=== PATIENT | female | born 1975 | race Asian ===

== ENCOUNTER 2018-08-23 16:21 | Observation (INO) ==
--- NOTE | 2018-08-23 17:30 | ED ---
HPI General Chief Complaint: Neuro Symptoms/Deficit Stated Complaint: Medical Time Seen by Provider: 08/23/18 16:51 Source: patient Mode of arrival: ambulatory Limitations: no limitations History of Present Illness HPI Narrative: The patient is a 43-year-old female who presents to the emergency department for visual acuity changes that occurred yesterday. The patient states she awakened yesterday and suddenly noticed that she had decreased vision from the upper aspect of both eyes. The patient felt like there was darkening of the upper quadrants of the left and right eye. She then developed a change in vision of her left eye earlier today on the left upper quadrant and was subsequently seen by the photography coordinator at the [place] [facility]. The patient states that the multiple test including dilating her eyes and stated her eyes were normal and referred her to the emergency department for evaluation of possible stroke. The patient denies any history of prior TIA or CVA, does have a history of lupus and is currently treated with medications. Symptoms are moderate, constant, and there are no current alleviating factors. The patient denies any weakness or numbness of the face, arms, or legs. She denies any ataxia. She denies any dysarthria. Onset (ago): day(s) Location: Reports other History of same: No Severity: moderate Quality: Reports constant and other Relieving factors: none Exacerbating factors: none Context: Reports sudden onset On Anticoagulants: No Associated symptoms: Reports denies other symptoms Treatments Prior to Arrival: Reports none Related Data Home Medications Medication Instructions Recorded Confirmed biotin 08/23/18 buspirone 10 mg PO BID 08/23/18 08/23/18 calcium carbonate [Calcium 600] 600 mg PO TID 08/23/18 08/23/18 cyclobenzaprine 10 mg PO DAILY 08/23/18 08/23/18 diphenhydramine HCl 08/23/18 gabapentin 300 mg PO TID 08/23/18 08/23/18 hydroxychloroquine 200 mg PO BID 08/23/18 08/23/18 meloxicam 15 mg PO DAILY 08/23/18 08/23/18 Allergies Allergy/AdvReac Type Severity Reaction Status Date / Time sulfamethoxazole Allergy Rash Verified 08/23/18 16:49 [From Bactrim] trimethoprim [From Bactrim] Allergy Rash Verified 08/23/18 16:49 Review of Systems ROS: all other systems reviewed are negative PMFSH Medical History Medical History Age related osteoporosis (Acute) Arthritis (Acute) delivery delivered (Acute) Degenerative joint disease (Acute) Fibromyalgia (Acute) Kidney disease (Acute) Lupus (Acute) Migraine (Acute) Social History Social History Substance History: No History of Abuse Second Hand Smoke Exposure: No Smoking Status: Light tobacco smoker Tobacco Type: Cigarettes How Often Do You Have a Drink Containing Alcohol: Never Recent Travel in [facility] within the Last 8 Weeks: No Recent Out of Country Travel within the Last 8 Weeks: No Immunization History Tetanus Immunization: Unsure Hx Influenza Vaccine This Season: No Exam Narrative Exam Narrative: GENERAL: Awake, alert, pleasant 43-year-old female who appears her stated age and is in no acute respiratory distress. SKIN: Focused skin assessment warm/dry. HEAD: Atraumatic. Normocephalic. EYES: Pupils equal are dilated bilaterally. EOMs are intact. Patient is able to see fingers at a distance of 2 feet without difficulty. Vision is 20/20 with glasses. Confrontational eye james reveal that the left upper quadrant in both eyes is diminished. ENT: No nasal bleeding or discharge. Mucous membranes pink and moist. NECK: Trachea midline. No JVD. CARDIOVASCULAR: Regular rate and rhythm. No murmur appreciated. RESPIRATORY: No accessory muscle use. Clear to auscultation. Breath sounds equal bilaterally. GASTROINTESTINAL: Abdomen soft, non-tender, nondistended. Hepatic and splenic margins not palpable. MUSCULOSKELETAL: No obvious deformities. No clubbing. No cyanosis. No edema. NEUROLOGICAL: Awake and alert. No obvious cranial nerve deficits. Eye findings as above. No drift of the upper or lower extremities. Finger to nose is normal. Heel to resendez is normal. No dysarthria. Sensation is symmetric on the face, arms, and legs. PSYCHIATRIC: Appropriate mood and affect; insight and judgment normal. Course Initial Documented Vital Signs Pulse Rate 80 08/23/18 16:49 Respiratory Rate 18 08/23/18 16:49 Blood Pressure 137/95 H 08/23/18 16:49 Pulse Oximetry 98 08/23/18 16:49 Last Documented Vital Signs Temperature 98.0 F 08/24/18 03:18 Pulse Rate 77 08/24/18 06:01 Respiratory Rate 19 08/24/18 03:18 Blood Pressure 122/66 08/24/18 03:18 Pulse Oximetry 96 08/24/18 03:18 NIH Stroke Scale NIH Stroke Scale Level of Consciousness: 0-Alert Orientation Questions: 0-Answers both correct Responds to Commands: 0-Both tasks correct Gaze Eye Movement: 0-Horizontal movement WNL Visual James: 1-Partial hemianopia Facial Movement: 0-Normal Motor Functions Arm LEFT: 0-No drift Motor Functions Arm RIGHT: 0-No drift Motor Functions Leg LEFT: 0-No drift Motor Functions Leg RIGHT: 0-No drift Limb Ataxia: 0-No ataxia Sensory Loss: 0-No sensory loss Best Language: 0-Normal Articulation: 0-Normal Extinction or Inattention Sensory: 0-Absent Total: 1 Medical Decision Making MDM Narrative Medical decision making narrative: IV was established, labs are drawn and sent, and the patient was placed on cardiac telemetry monitoring and continuous pulse oximetry monitoring. EKG was ordered and interpreted. Laboratory evaluation was sent to lab and I discussed the patient with the on-call lotus notes developer, Dr. Bailey. After discussion it was agreed the patient would have an MRI of the brain and MRA of the brain. The on-call neurologist, Dr. Nichols, was also notified to evaluate for any further additional MRIs acutely. I discussed the patient with Dr. Nichols who also agrees with MRI/MRA of the brain and neck. The patient will be a 23-hour observation to the on-call medical service. Medical Screen Exam Complete: Yes Emergency Medical Condition: Yes Differential Diagnosis Differential Diagnosis: Differential diagnosis includes CVA, TIA, lupus side effect, central venous thrombosis, central artery thrombosis, retinal detachment , complicated migraine, atypical seizure. Lab Data Lab results reviewed: Yes I reviewed the patient's lab results. Result diagrams: 08/23/18 17:24 08/23/18 17:24 Lab Results 08/23/18 08/23/18 08/23/18 Range/Units 16:50 17:24 17:24 WBC 7.5 (4.0-11.0) th/mm3 RBC 4.66 (4.00-5.30) mil/mm3 Hgb 12.3 (11.6-15.3) gm/dL Hct 36.7 (35.0-46.0) % MCV 78.8 L (80.0-100.0) fL MCH 26.4 L (27.0-34.0) pg MCHC 33.4 (32.0-36.0) % RDW 13.7 (11.6-17.2) % Plt Count 366 (150-450) th/mm3 MPV 8.1 (7.0-11.0) fL Neut % (Auto) 48.3 (16.0-70.0) % Lymph % (Auto) 38.7 (9.0-44.0) % [place] % (Auto) 11.1 H (0.0-8.0) % Eos % (Auto) 1.4 (0.0-4.0) % Baso % (Auto) 0.5 (0.0-2.0) % Neut # (Auto) 3.6 (1.8-7.7) th/mm3 Lymph # (Auto) 2.9 (1.0-4.8) th/mm3 [place] # (Auto) 0.8 (0.0-0.9) th/mm3 Eos # (Auto) 0.1 (0.0-0.4) th/mm3 Baso # (Auto) 0.0 (0.0-0.2) th/mm3 WBC Differential . Differential Comment Auto diff final PT 10.7 (9.8-11.6) sec INR 1.1 Ratio APTT 27.8 (24.3-30.1) sec Sodium (136-145) meq/L Potassium (3.5-5.1) meq/L Chloride (98-107) meq/L Carbon Dioxide (21.0-32.0) meq/L Anion Gap (5-15) meq/L BUN (7-18) mg/dL Creatinine (0.50-1.00) mg/dL Estimated GFR (>89) mL/min POC Glucose 78 (68-110) mg/dl Random Glucose (74-106) mg/dL Calcium (8.5-10.1) mg/dL Total Bilirubin (0.2-1.0) mg/dL AST (15-37) U/L ALT (10-53) U/L Alkaline Phosphatase (45-117) U/L Total Protein (6.4-8.2) g/dL Albumin (3.4-5.0) g/dL 08/23/18 Range/Units 17:24 WBC (4.0-11.0) th/mm3 RBC (4.00-5.30) mil/mm3 Hgb (11.6-15.3) gm/dL Hct (35.0-46.0) % MCV (80.0-100.0) fL MCH (27.0-34.0) pg MCHC (32.0-36.0) % RDW (11.6-17.2) % Plt Count (150-450) th/mm3 MPV (7.0-11.0) fL Neut % (Auto) (16.0-70.0) % Lymph % (Auto) (9.0-44.0) % [place] % (Auto) (0.0-8.0) % Eos % (Auto) (0.0-4.0) % Baso % (Auto) (0.0-2.0) % Neut # (Auto) (1.8-7.7) th/mm3 Lymph # (Auto) (1.0-4.8) th/mm3 [place] # (Auto) (0.0-0.9) th/mm3 Eos # (Auto) (0.0-0.4) th/mm3 Baso # (Auto) (0.0-0.2) th/mm3 WBC Differential Differential Comment PT (9.8-11.6) sec INR Ratio APTT (24.3-30.1) sec Sodium 142 (136-145) meq/L Potassium 3.4 L (3.5-5.1) meq/L Chloride 106 (98-107) meq/L Carbon Dioxide 29.0 (21.0-32.0) meq/L Anion Gap 7 (5-15) meq/L BUN 12 (7-18) mg/dL Creatinine 0.78 (0.50-1.00) mg/dL Estimated GFR 80 L (>89) mL/min POC Glucose (68-110) mg/dl Random Glucose 70 L (74-106) mg/dL Calcium 8.4 L (8.5-10.1) mg/dL Total Bilirubin 0.2 (0.2-1.0) mg/dL AST 27 (15-37) U/L ALT 16 (10-53) U/L Alkaline Phosphatase 101 (45-117) U/L Total Protein 7.4 (6.4-8.2) g/dL Albumin 3.3 L (3.4-5.0) g/dL Imaging Data Radiologist's impression: Head MRI 08/23/18 17:22 CONCLUSION: 1. Negative noncontrast MRI brain. Head MRA 08/23/18 17:22 CONCLUSION: 1. Negative MRA of the [place]. Neck MRA 08/23/18 17:32 CONCLUSION: 1. Negative MRA of the carotids. Percent stenosis is calculated using the diameter of the stenotic region over the diameter of the normal distal internal carotid artery Discharge Plan Discharge Disposition Patient Disposition: 30 Still Patient Discharge Condition Condition: Stable Discharge Details Diagnosis: Homonymous hemianopsia, Homonymous bilateral field defects, unspecified side Physicians Team ED Provider: Rinku Raza Primary Care Provider: UNKNOWN, Attending Provider: Annabelle Sue Other Providers: Ned Aquino Status ED Status: Left Department Discharge Information Discharge Date/Time: 08/23/18 19:58
[2018-08-23] MEDS ORDERED: Bisacodyl 10 MG Supp RECTAL PRN (18:10)
[2018-08-23] MEDS ORDERED: Acetaminophen 325 MG Tablet PO PRN (18:10)
[2018-08-23] MEDS ORDERED: Gadobutrol PF 10 MMOL/10 ML Vial (for RAD) IV.SIG ONE ×2 (18:15→19:01)
[2018-08-23 18:18] LABS: Baso % (Auto) 0.5 % (0.0-2.0); Eos # (Auto) 0.1 th/mm3 (0.0-0.4); Eos % (Auto) 1.4 % (0.0-4.0); Hematocrit 36.7 % (35.0-46.0); Hemoglobin 12.3 gm/dL (11.6-15.3); Lymph # (Auto) 2.9 th/mm3 (1.0-4.8); Lymph % (Auto) 38.7 % (9.0-44.0); Mean Corpuscular HGB Conc 33.4 % (32.0-36.0); Mean Corpuscular Hemoglobin 26.4 pg (27.0-34.0); Mean Corpuscular Volume 78.8 fL (80.0-100.0); Mean Platelet Volume 8.1 fL (7.0-11.0); Mono # (Auto) 0.8 th/mm3 (0.0-0.9); Mono % (Auto) 11.1 % (0.0-8.0); Neut # (Auto) 3.6 th/mm3 (1.8-7.7); Neut % (Auto) 48.3 % (16.0-70.0); Platelet Count 366 th/mm3 (150-450); Red Blood Count 4.66 mil/mm3 (4.00-5.30); Red Cell Distribution Width 13.7 % (11.6-17.2); White Blood Count 7.5 th/mm3 (4.0-11.0)
[2018-08-23 18:26] LABS: Activated Partial Thrombo Time 27.8 sec (24.3-30.1); Alanine Aminotransferase 16 U/L (10-53); Albumin 3.3 g/dL (3.4-5.0); Anion Gap 7 meq/L (5-15); Aspartate Aminotransferase 27 U/L (15-37); Blood Urea Nitrogen 12 mg/dL (7-18); Calcium 8.4 mg/dL (8.5-10.1); Chloride 106 meq/L (98-107); Glomerular Filtration Rate 80 mL/min (>89); Glucose,Random 70 mg/dL (74-106); INR 1.1 Ratio; Potassium 3.4 meq/L (3.5-5.1); Prothrombin Time 10.7 sec (9.8-11.6); Sodium 142 meq/L (136-145)
[2018-08-23 18:28] LABS: Alkaline Phosphatase 101 U/L (45-117); Total Protein 7.4 g/dL (6.4-8.2)
--- NOTE | 2018-08-23 18:46 | P.HP ---
History of Present Illness Service: Hospitalist Primary Care Physician: UNKNOWN Chief Complaint: Partial vision loss History of Present Illness: Ms. Dockery is a pleasant 43-year-old female with a history of mixed connective tissue disease (MCTD) who presents to the emergency department on 08/23/2018 due to acute partial vision loss and blurry vision that started on 08/22/2018. Day before this admission patient woke up in the morning and experienced blurriness in her vision as well as darkness especially on the upper quadrants of both eyes. Hoping that it would go away, she waited 1 day. This morning she woke up with worsening symptoms with her vision again blurred and dark especially upper quadrants. She denies any dysarthria, weakness, facial droopiness. She did not have any chest pain, shortness of breath, cough, abdominal pain, fever or chills. No changes in bowel or bladder habits. She was evaluated by [place] regulatory internship who after examining patient recommended emergency department evaluation for possible stroke. Patient is hemodynamically stable and labs unremarkable. Ophthalmology and neurology were contacted by emergency department. Neurology recommended MRI studies to investigate further. Past medical history: Mixed connective tissue disease, lupus nephritis Past surgical history: , tubal ligation Social history: She smokes about 3 cigarettes/week. Denies using illicit drugs or alcohol. Family history: Patient was adopted and does not know her biological family history. - Diagnosis (1) MCTD (mixed connective tissue disease) (2) Homonymous hemianopsia Review of Systems All other systems reviewed negative except as stated in HPI [facility], [facility] - History History Provided By: Leather Currier / EMT - Medical History Medical History: Medical History (Last Updated 08/23/18 @ 16:54 by Diamond Alfonso) Age related osteoporosis Arthritis delivery delivered Degenerative joint disease Fibromyalgia Kidney disease Lupus Migraine - Tobacco History Second Hand Smoke Exposure: No Tobacco Use In Past 30 Days: No Smoking Status: Current some day smoker Tobacco Type: Cigarettes - Alcohol History How Often Do You Have a Drink Containing Alcohol: Never - Substance Use History Substance History: No History of Abuse - Travel History Recent Travel in the [facility] Within the Last 8 Weeks: No Recent Travel Out of the Country Within the Last 8 Weeks: No - Immunization History Tetanus Immunization: Unsure Hx Influenza Vaccine This Season: No Medications and Allergies Active Medications: Active Medications Acetaminophen (Tylenol) 650 mg PO Q4H PRN PRN Reason: Headache, fever, pain 1-4 [place] Hydroxide/Mg Hydroxide (Milk Of Magnesia Liq) 30 ml PO Q12H PRN PRN Reason: Mild Constipation Bisacodyl (Dulcolax Supp) 10 mg RECTAL DAILY PRN PRN Reason: SEVERE CONSITIPATION Lactulose (Lactulose Liq) 30 ml PO DAILY PRN PRN Reason: SEVERE CONSITIPATION Ondansetron HCl (Zofran Inj) 4 mg IV.PUSH Q6H PRN PRN Reason: NAUSEA OR VOMITING Sennosides (Senokot) 17.2 mg PO Q12H PRN PRN Reason: Moderate Constipation Allergies Allergy/AdvReac Type Severity Reaction Status Date / Time sulfamethoxazole Allergy Rash Verified 08/23/18 16:49 [From Bactrim] trimethoprim [From Bactrim] Allergy Rash Verified 08/23/18 16:49 Home Medications Medication Instructions Recorded Confirmed Type biotin 08/23/18 History buspirone 10 mg PO BID 08/23/18 08/23/18 History calcium carbonate [Calcium 600] 600 mg PO TID 08/23/18 08/23/18 History cyclobenzaprine 10 mg PO DAILY 08/23/18 08/23/18 History diphenhydramine HCl 08/23/18 History gabapentin 300 mg PO TID 08/23/18 08/23/18 History hydroxychloroquine 200 mg PO BID 08/23/18 08/23/18 History meloxicam 15 mg PO DAILY 08/23/18 08/23/18 History Exam Vital signs: Vital Signs 08/23/18 16:49 08/23/18 17:04 Pulse Rate 80 79 Respiratory Rate 18 18 Blood Pressure 137/95 H 137/95 H Pulse Oximetry 98 100 Intake & Output 08/22/18 08/23/18 08/23/18 18:59 06:59 18:59 Weight 67.132 kg Narrative: GENERAL: This is a well-nourished, well-developed patient, in no apparent distress. SKIN: No rashes, ecchymoses or lesions. Warm and dry. HEAD: Atraumatic. Normocephalic. No temporal or scalp tenderness. EYES: Pupils equal round and reactive. No injection or drainage. Peripheral vision is diminished in the upper quadrants, more pronounced on the left eye. ENT: Nose without bleeding, purulent drainage or septal hematoma. Airway patent. NECK: Trachea midline. No lymphadenopathy. Supple, nontender, no meningeal signs. CARDIOVASCULAR: Regular rate and rhythm without murmurs, gallops, or rubs. No JVD. RESPIRATORY: Clear to auscultation. Breath sounds equal bilaterally. No wheezes , rales, or rhonchi. GASTROINTESTINAL: Abdomen soft, non-tender, nondistended. No guarding. MUSCULOSKELETAL: Extremities without clubbing, cyanosis, or edema. NEUROLOGICAL: Awake and alert. Cranial nerves II through XII intact. No focal neurological deficits other than visual field deficits as noted above. Normal speech. - Detailed Eye Exam Visual acuity: Visual Acuity Visual Acuity Corrected [ 20/20 Bilateral] Results - Labs CBC & Chem 7: 08/23/18 17:24 08/23/18 17:24 Labs: Laboratory Results - last 24 hr 08/23/18 08/23/18 08/23/18 16:50 17:24 17:24 WBC 7.5 RBC 4.66 Hgb 12.3 Hct 36.7 MCV 78.8 L MCH 26.4 L MCHC 33.4 RDW 13.7 Plt Count 366 MPV 8.1 Neut % (Auto) 48.3 Lymph % (Auto) 38.7 [place] % (Auto) 11.1 H Eos % (Auto) 1.4 Baso % (Auto) 0.5 Neut # (Auto) 3.6 Lymph # (Auto) 2.9 [place] # (Auto) 0.8 Eos # (Auto) 0.1 Baso # (Auto) 0.0 WBC Differential . Differential Comment Auto diff final PT 10.7 INR 1.1 APTT 27.8 Sodium Potassium Chloride Carbon Dioxide Anion Gap BUN Creatinine Estimated GFR POC Glucose 78 Random Glucose Calcium Total Bilirubin AST ALT Alkaline Phosphatase Total Protein Albumin 08/23/18 17:24 WBC RBC Hgb Hct MCV MCH MCHC RDW Plt Count MPV Neut % (Auto) Lymph % (Auto) [place] % (Auto) Eos % (Auto) Baso % (Auto) Neut # (Auto) Lymph # (Auto) [place] # (Auto) Eos # (Auto) Baso # (Auto) WBC Differential Differential Comment PT INR APTT Sodium 142 Potassium 3.4 L Chloride 106 Carbon Dioxide 29.0 Anion Gap 7 BUN 12 Creatinine 0.78 Estimated GFR 80 L POC Glucose Random Glucose 70 L Calcium 8.4 L Total Bilirubin 0.2 AST 27 ALT 16 Alkaline Phosphatase 101 Total Protein 7.4 Albumin 3.3 L Caprini VTE Risk Assessment Caprini VTE Risk Assessment: No/Low Risk (score <= 1) Caprini Risk Assessment Model: Point Value = 1 Point Value = 2 Point Value = 3 Point Value = 5 Age 41-60 Minor surgery BMI > 25 kg/m2 Swollen legs Varicose veins or History of unexplained or recurrent spontaneous Oral contraceptives or hormone replacement Sepsis (< 1 month) Serious lung disease, including pneumonia (< 1 month) Abnormal pulmonary function Acute myocardial infarction Congestive heart failure (< 1 month) History of inflammatory bowel disease Medical patient at bed rest Age 61-74 Arthroscopic surgery Major open surgery (> 45 min) Laparoscopic surgery (> 45 min) Malignancy Confined to bed (> 72 hours) Immobilizing plaster cast Central venous access Age >= 75 History of VTE Family history of VTE Factor V Leiden Prothrombin [id number] Lupus anticoagulant Anticardiolipin antibodies Elevated serum homocysteine Heparin-induced thrombocytopenia Other congenital or acquired thrombophilia Stroke (< 1 month) Elective arthroplasty Hip, pelvis, or leg fracture Acute spinal cord injury (< 1 month) Prophylaxis Regimen: Total Risk Factor Score Risk Level Prophylaxis Regimen 0-1 Low Early ambulation 2 Moderate Order ONE of the following: *Sequential Compression Device (SCD) *Heparin 5000 units SQ BID 3-4 Higher Order ONE of the following medications: *Heparin 5000 units SQ TID *Enoxaparin/Lovenox 40 mg SQ daily (WT < 150 kg, CrCl > 30 mL/min) *Enoxaparin/Lovenox 30 mg SQ daily (WT < 150 kg, CrCl > 10-29 mL/min) *Enoxaparin/Lovenox 30 mg SQ BID (WT < 150 kg, CrCl > 30 mL/min) AND/OR *Sequential Compression Device (SCD) 5 or more Highest Order ONE of the following medications: *Heparin 5000 units SQ TID (Preferred with Epidurals) *Enoxaparin/Lovenox 40 mg SQ daily (WT < 150 kg, CrCl > 30 mL/min) *Enoxaparin/Lovenox 30 mg SQ daily (WT < 150 kg, CrCl > 10-29 mL/min) *Enoxaparin/Lovenox 30 mg SQ BID (WT < 150 kg, CrCl > 30 mL/min) AND *Sequential Compression Device (SCD) Assessment and Plan - Assessment (1) MCTD (mixed connective tissue disease) Code(s): M35.1 - Other overlap syndromes Status: Acute (2) Homonymous hemianopsia Code(s): H53.469 - Homonymous bilateral field defects, unspecified side Status : Acute - Plan Ms. Dockery is a pleasant 43-year-old female with a history of mixed connective tissue disease who presents to the emergency department on 08/23/2018 due to blurry vision and darkness in her upper quadrant of her visual lawson that started on 08/22/2018. Patient denied any other focal neurological deficits. Bilateral hemianopsia -Ophthalmology and neurology were contacted by emergency department physician. -We will consult neurology for now. Patient is currently undergoing MRI studies per neurology recommendations. -An outpatient ophthalmology evaluation may be helpful. Mixed connective tissue disease -We will continue hydroxychloroquine. Tobacco abuse -Patient smokes about 3 cigarettes/week. She has no desire to quit smoking. Provided counseling, however. Full code. SCDs, Ambulation. (2) Homonymous hemianopsia Qualifiers: Laterality: left Qualified Code(s): H53.462 - Homonymous bilateral field defects, left side
--- NOTE | 2018-08-23 19:18 | MR ---
EXAM DATE: 08/23/2018 6:49 PM EDT AGE/SEX: 43 years / Female INDICATIONS: CVA. CLINICAL DATA: This is the patient's initial encounter. Patient reports that signs and symptoms have been present for 1 day and indicates a pain score of 0/10. MEDICAL/SURGICAL HISTORY: Lupus. Rheumatoid arthritis. Tubal ligation. section. COMPARISON: No prior exams available for comparison. TECHNIQUE: 3D [id number] MRA was performed. Source images, multiplanar STS MIP, and 3D volum e MIP reconstructions were reviewed. FINDINGS: There is excellent visualization of the major intracranial arteries out to the second-order branch ve ssels. There is no evidence for aneurysm, vessel truncation or stenosis, and no evidence for vascula r malformation. The right posterior cerebral artery arises from the anterior circulation. Flow is see n in the anterior communicating artery. CONCLUSION: 1. Negative MRA of the [place]. Electronically signed by: Rupesh Gamez MD 08/23/2018 7:17 PM EDT
--- NOTE | 2018-08-23 20:35 | MR ---
EXAM DATE: 08/23/2018 6:49 PM EDT AGE/SEX: 43 years / Female INDICATIONS: CVA. CLINICAL DATA: This is the patient's initial encounter. Patient reports that signs and symptoms have been present for 1 day and indicates a pain score of 0/10. MEDICAL/SURGICAL HISTORY: Lupus. Rheumatoid arthritis. Tubal ligation. section. COMPARISON: No prior exams available for comparison. TECHNIQUE: Multiplanar, multisequence examination of the brain was performed without contrast. FINDINGS: Cerebrum: The ventricles are normal for age. No evidence of midline shift, mass lesion, hemorrhage or acute infarction. No extraaxial fluid collections are seen. The pituitary gland and suprasellar cistern are normal in configuration. White Matter: No significant signal abnormalities are seen in the white matter. Posterior Fossa: The cerebellum and brainstem are intact. The 4th ventricle is midline. The cerebel lopontine angle is unremarkable. The cerebellar tonsils are normal in position. Diffusion Imaging: No focal areas of restricted diffusion are seen. No evidence of acute infarction . Extracranial: The visualized portions of the orbits and paranasal sinuses are unremarkable. CONCLUSION: 1. Negative noncontrast MRI brain. Electronically signed by: Rupesh Gamez MD 08/23/2018 8:33 PM EDT
--- NOTE | 2018-08-23 20:36 | MR ---
EXAM DATE: 08/23/2018 6:49 PM EDT AGE/SEX: 43 years / Female INDICATIONS: Stroke. Blurry vision. CLINICAL DATA: This is the patient's initial encounter. Patient reports that signs and symptoms have been present for 2 days and indicates a pain score of 4/10. MEDICAL/SURGICAL HISTORY: Renal failure, chronic. Lupus. Rheumatoid arthritis. secti on. Tubal ligation. COMPARISON: No prior exams available for comparison. TECHNIQUE: 10 ml Gadavist (gadobutrol) contrast infused MRA (single exam dose) of the extracranial circulation was performed using a neurovascular coil. Postprocessing was performed, including rotati ng sub-volume maximum intensity projections of each carotid artery, rotating full-volume maximum inte nsity projections of both carotid arteries, sagittal and coronal sliding thin-slab reformations of ea ch carotid artery, and left oblique sliding thin-slab reformation through the aortic arch to include the origin of the arch branch vessels. FINDINGS: Aortic Arch : There is a three-vessel origin of the great vessels from the aorta. No evidence of o stial narrowing. Right Carotid : The common carotid artery is intact. The carotid bulb has a normal configuration wi thout ulceration or narrowing. The internal carotid artery lumen is smooth without stenosis. The ex ternal carotid artery is intact. Left Carotid : The common carotid artery is intact. The carotid bulb has a normal configuration wit hout ulceration or narrowing. The internal carotid artery lumen is smooth without stenosis. The ext ernal carotid artery is intact. Vertebrals : The vertebral arteries have a symmetric diameter. No stenotic lesions are seen. CONCLUSION: 1. Negative MRA of the carotids. Percent stenosis is calculated using the diameter of the stenotic region over the diameter of the nor mal distal internal carotid artery Electronically signed by: Rupesh Gamez MD 08/23/2018 8:34 PM EDT
[2018-08-24] MEDS: Hydroxychloroquine 200 MG Tablet PO SCH ×2 (08:19→20:46)
[2018-08-24] MEDS: Gabapentin 300 MG Capsule PO SCH ×3 (08:20→18:04)
[2018-08-24] MEDS: Calcium Carbonate 500 MG Tablet PO SCH ×3 (08:22→18:04)
--- NOTE | 2018-08-24 10:42 | MB ---
cc: Ned Boothe MD DATE: 08/24/2018 HISTORY OF PRESENT ILLNESS: The patient is 43-year-old right-handed woman with a history of dry eyes, Sjogren syndrome, mixed connective tissue disorder, rheumatoid arthritis, possibly lupus, some increased LFTs in the past from that, glomerulonephritis on kidney biopsy in 2001. She does not take an aspirin a day. She has had headaches daily for about 2 years, bifrontal, temporal, throbbing. No asymmetrical weakness or numbness. Then on Monday of this week, which is 2 days ago, she woke up and felt like she was wearing sunglasses and then her vision seemed to come in almost like a tunnel on her, but slowly and gradually seemed a bit worse on . Evidently, she went to the tie puller or rehab aid at the [facility] yesterday and they thought her eyes looked structurally normal. She has not interestingly enough had a headache in the last several days. She has not had any asymmetrical weakness or numbness. She occasionally has some sharp chest pains, last ones were 4 days ago. No palpitations. REVIEW OF SYSTEMS: She denies any hypertension, diabetes, hypercholesterolemia, [place], stent, angioplasty, atrial fibrillation, coumadin, CABG, pulmonary disease, thyroid disease, ulcer, cancer, seizure, stroke. SOCIAL HISTORY: She is a smoker and I have asked her to stopped. She is not a drinker, lives with her . FAMILY HISTORY: She is adopted, does not know about it. MEDICATIONS AT HOME: 1. Benadryl 2. Venlafaxine. 3. Meloxicam. 4. Hydroxychloroquine. 5. Gabapentin 300 t.i.d. 6. Cyclobenzaprine. 7. Calcium 8. BuSpar. PHYSICAL EXAMINATION: GENERAL: On exam, her affect is normal. VITAL SIGNS: Afebrile, 119/72, 16, 85. VASCULAR: There are no carotid ocular or vertebral bruits. HEART: Regular rhythm with a 1/6 systolic ejection murmur. NEUROLOGIC: The pupils are equal. Visual lawson, she appears to have a left superior quadrantanopia. Otherwise, visual lawson are full. Disks were sharp bilaterally. Extraocular movements intact without nystagmus. Face is symmetric with normal sensation. Tongue was midline. No drift. She has normal strength in upper and lower extremities bilaterally. Toes are downgoing bilaterally. DTRs are absent throughout. There was no ankle clonus. Pinprick is intact throughout face, arm and leg bilaterally. There is no tactile [id number]. Speech is fluent. She is not aphasic. LABORATORY DATA: Her CBC is normal. Basic metabolic profile was normal. LFTs normal. Coagulation studies normal. MRI of the brain was read as normal. Reviewing the films, there was a small white matter change right deep parietal region, tiny, otherwise normal. MRA of the neck and [place] of [place] was normal, vertebrobasilar system normal. Looking closely at the right occipital lobe, I do not see any abnormality on the diffusion or FLAIR image, nor is there any hemorrhage. IMPRESSION AND PLAN: Left superior quadrantanopia, unclear exactly what the etiology is there. We will do an echocardiogram, a Holter. We will repeat her MRI later today to see if we missed anything. On the first MRIs, we can have a 3% false negative rate on the scans. Check her sedimentation rate and some other rheumatological labs with a history of rheumatoid arthritis, possible lupus. Put her on a baby aspirin a day. A complicated migraine could be considered, although actually she has been headache-free for the last several days when she usually has daily headaches. Check an EEG on her. MR venogram. Do a contrast MRI. Also check a hypercoagulable screen on her. MD MAURICIO Kirk/yanni , 09:17 AM , 09:25 AM
[2018-08-24] MEDS: Sod Chloride 0.9% Inj 1,000 ML IV.CONT SCH (10:51)
[2018-08-24 10:53] LABS: C-Reactive Protein 4.58 mg/dL (0.00-0.30)
[2018-08-24] MEDS ORDERED: Gadobutrol PF 10 MMOL/10 ML Vial (for RAD) IV.SIG ONE (10:54)
[2018-08-24 11:16] LABS: Amphetamine Screen,Urine Neg (Neg); Barbiturate Screen,Urine Neg (Neg); Cannabinoid Screen,Urine Neg (Neg); Cocaine Screen,Urine Neg (Neg)
[2018-08-24 11:18] LABS: Free T4 (Free Thyroxine) 0.99 ng/dL (0.76-1.46); Vitamin B12 755 pg/mL (193-986)
[2018-08-24 11:46] LABS: Opiate Screen,Urine Neg (Neg)
--- NOTE | 2018-08-24 12:22 | MR ---
EXAM DATE: 08/24/2018 9:52 AM EDT AGE/SEX: 43 years / Female INDICATIONS: Cephalgia. Vision loss. CLINICAL DATA: This is the patient's initial encounter. Patient reports that signs and symptoms have been present for 1 day and indicates a pain score of 4/10. MEDICAL/SURGICAL HISTORY: Lupus. Rheumatoid arthritis. Tubal ligation. Cholecystectomy. [place] [facility] [place]/O [place]/24/2018. . TECHNIQUE: MR cerebral venography is performed without and with 10 ml Gadavist (gadobutrol) contrast (single exam dose). Source images, 3D volume MIP, and sliding thin slab MIP reconstructions were re viewed. FINDINGS: The intracranial venous anatomy demonstrates normal sagittal sinus and normal transverse and sigmoid sinus bilaterally. Right internal jugular vein is well-visualized in the superior aspect of the neck to the left internal jugular vein is not seen. CONCLUSION: 1. Normal evaluation of the intracranial venous structures. 2. The left internal jugular vein is not visualized which could be related to technical factors. How ever, consider obtaining internal jugular vein ultrasound evaluation to evaluate for patency. Electronically signed by: Bry Ho MD 08/24/2018 12:20 PM EDT
--- NOTE | 2018-08-24 12:26 | MR ---
EXAM DATE: 08/24/2018 9:52 AM EDT AGE/SEX: 43 years / Female INDICATIONS: . Vision loss. CLINICAL DATA: This is the patient's initial encounter. Patient reports that signs and symptoms have been present for 1 day and indicates a pain score of 4/10. MEDICAL/SURGICAL HISTORY: Lupus. Rheumatoid arthritis. section. Tubal ligation. COMPARISON: [facility] – [place], [place] HEAD W/O CONTRAST, 08/23/2018. . TECHNIQUE: Multiplanar, multisequence examination of the brain was performed without and with 10 ml G adavist (gadobutrol) contrast as a single exam dose. FINDINGS: Cerebrum: Ventricles are normal. No midline shift, mass lesion, hemorrhage or acute infarction. No extraaxial fluid collections are seen. The pituitary gland and suprasellar cistern are normal in con figuration. White Matter: No significant signal abnormalities are seen in the white matter. Posterior Fossa: The cerebellum and brainstem demonstrate no acute abnormality. The 4th ventricle is midline. The cerebellopontine angle is within normal limits. The cerebellar tonsils are normal in p osition. Diffusion Imaging: No areas of restricted diffusion are seen. Extracranial: The visualized sinuses are clear. CONCLUSION: Normal brain MRI with and without intravenous contrast. There is no abnormality identified to explain the clinical symptoms. Electronically signed by: Bry Ho MD 08/24/2018 12:24 PM EDT
--- NOTE | 2018-08-24 14:01 | P.PN ---
Subjective Interval history: Follow-up on patient with acute partial vision loss. Patient seen and examined. Patient states she continues to have decreased vision with a sensation of wearing sunglasses. Patient reports decreased vision in the upper outer quadrants of both eyes more so on the left. She denies any complaints of headaches for the past week which she states is strange for her because she is normally a nearly daily migraine suffer. Physical Exam Vital signs: Vital Signs 08/23/18 16:49 08/23/18 17:04 08/23/18 19:15 Temperature Pulse Rate 80 79 89 Respiratory Rate 18 18 16 Blood Pressure 137/95 H 137/95 H 134/88 Pulse Oximetry 98 100 99 08/23/18 20:00 08/24/18 03:18 08/24/18 06:01 Temperature 97.8 F 98.0 F Pulse Rate 87 86 77 Respiratory Rate 19 19 Blood Pressure 128/76 122/66 Pulse Oximetry 99 96 08/24/18 07:40 08/24/18 07:51 08/24/18 12:00 Temperature 97.8 F 97.8 F Pulse Rate 85 72 83 Respiratory Rate 16 16 Blood Pressure 119/72 122/73 Pulse Oximetry 98 98 Intake & Output 08/23/18 08/24/18 08/24/18 18:59 06:59 18:59 Intake Total 480 / 480 Balance 480 / 480 Weight 67.132 kg Intake: Oral 480 / 480 Other: # Voids 1 Date of Last Bowel Movement 08/22/18 Narrative: GENERAL: This is a well-nourished, well-developed female patient, in no apparent distress. Awake and alert. Appears comfortable. SKIN: No rashes. Warm and dry. HEAD: Atraumatic. Normocephalic. No temporal or scalp tenderness. EYES: Pupils equal round and reactive. No injection or drainage. Peripheral vision is diminished in the upper quadrants, more pronounced on the left eye. ENT: Nose without bleeding or purulent drainage. Airway patent. NECK: Trachea midline. No lymphadenopathy. Supple, nontender, no meningeal signs. CARDIOVASCULAR: Regular rate and rhythm without murmurs, gallops, or rubs. No JVD. RESPIRATORY: Clear to auscultation. Breath sounds equal bilaterally. No wheezes , rales, or rhonchi. GASTROINTESTINAL: Abdomen soft, non-tender, nondistended. No guarding. MUSCULOSKELETAL: Extremities without clubbing, cyanosis, or edema. NEUROLOGICAL: Awake and alert. Cranial nerves II through XII intact. No focal neurological deficits other than visual field deficits as noted above. Motor appears grossly intact. Able to move all actually spontaneously. Normal speech. PSYCHIATRIC: Appropriate mood and affect. Normal judgment and insight. - Detailed Eye Exam Visual acuity: Visual Acuity Visual Acuity Corrected [ 20/20 Bilateral] Results - Labs CBC & Chem 7: 08/23/18 17:24 08/23/18 17:24 Laboratory Results - last 24 hr 08/23/18 08/23/18 08/23/18 16:50 17:24 17:24 WBC 7.5 RBC 4.66 Hgb 12.3 Hct 36.7 MCV 78.8 L MCH 26.4 L MCHC 33.4 RDW 13.7 Plt Count 366 MPV 8.1 Neut % (Auto) 48.3 Lymph % (Auto) 38.7 [place] % (Auto) 11.1 H Eos % (Auto) 1.4 Baso % (Auto) 0.5 Neut # (Auto) 3.6 Lymph # (Auto) 2.9 [place] # (Auto) 0.8 Eos # (Auto) 0.1 Baso # (Auto) 0.0 WBC Differential . Differential Comment Auto diff final ESR PT 10.7 INR 1.1 APTT 27.8 Sodium Potassium Chloride Carbon Dioxide Anion Gap BUN Creatinine Estimated GFR POC Glucose 78 Random Glucose Calcium Total Bilirubin AST ALT Alkaline Phosphatase C-Reactive Protein Total Protein Total Protein (PEP) Albumin Vitamin B12 Folate TSH Free T4 Beta HCG, Quant Urine Opiates Screen Ur Barbiturates Screen Ur Amphetamines Screen U Benzodiazepines Scrn Urine Cocaine Screen U Cannabinoids Screen Rheumatoid Factor Scrn Rheumatoid Factor Titer 08/23/1818 08/24/18 17:24 09:55 09:55 WBC RBC Hgb Hct MCV MCH MCHC RDW Plt Count MPV Neut % (Auto) Lymph % (Auto) [place] % (Auto) Eos % (Auto) Baso % (Auto) Neut # (Auto) Lymph # (Auto) [place] # (Auto) Eos # (Auto) Baso # (Auto) WBC Differential Differential Comment ESR 31 H PT INR APTT Sodium 142 Potassium 3.4 L Chloride 106 Carbon Dioxide 29.0 Anion Gap 7 BUN 12 Creatinine 0.78 Estimated GFR 80 L POC Glucose Random Glucose 70 L Calcium 8.4 L Total Bilirubin 0.2 AST 27 ALT 16 Alkaline Phosphatase 101 C-Reactive Protein 4.58 H Total Protein 7.4 Total Protein (PEP) 7.2 Albumin 3.3 L Vitamin B12 755 Folate Greater than 20.0 H TSH 3.010 Free T4 0.99 Beta HCG, Quant Less than 1 Urine Opiates Screen Ur Barbiturates Screen Ur Amphetamines Screen U Benzodiazepines Scrn Urine Cocaine Screen U Cannabinoids Screen Rheumatoid Factor Scrn Negative Rheumatoid Factor Titer Not Reportable 08/24/18 10:50 WBC RBC Hgb Hct MCV MCH MCHC RDW Plt Count MPV Neut % (Auto) Lymph % (Auto) [place] % (Auto) Eos % (Auto) Baso % (Auto) Neut # (Auto) Lymph # (Auto) [place] # (Auto) Eos # (Auto) Baso # (Auto) WBC Differential Differential Comment ESR PT INR APTT Sodium Potassium Chloride Carbon Dioxide Anion Gap BUN Creatinine Estimated GFR POC Glucose Random Glucose Calcium Total Bilirubin AST ALT Alkaline Phosphatase C-Reactive Protein Total Protein Total Protein (PEP) Albumin Vitamin B12 Folate TSH Free T4 Beta HCG, Quant Urine Opiates Screen Neg Ur Barbiturates Screen Neg Ur Amphetamines Screen Neg U Benzodiazepines Scrn Neg Urine Cocaine Screen Neg U Cannabinoids Screen Neg Rheumatoid Factor Scrn Rheumatoid Factor Titer - Imaging Impressions Head MRI 08/23/18 17:22 CONCLUSION: 1. Negative noncontrast MRI brain. Head MRA 08/23/18 17:22 CONCLUSION: 1. Negative MRA of the [place]. Neck MRA 08/23/18 17:32 CONCLUSION: 1. Negative MRA of the carotids. Percent stenosis is calculated using the diameter of the stenotic region over the diameter of the normal distal internal carotid artery Head/Brain Mag Res Venography 08/24/18 00:00 CONCLUSION: 1. Normal evaluation of the intracranial venous structures. 2. The left internal jugular vein is not visualized which could be related to technical factors. However, consider obtaining internal jugular vein ultrasound evaluation to evaluate for patency. Head MRI 08/24/18 09:13 CONCLUSION: Normal brain MRI with and without intravenous contrast. There is no abnormality identified to explain the clinical symptoms. Assessment and Plan - Assessment (1) MCTD (mixed connective tissue disease) Code(s): M35.1 - Other overlap syndromes Status: Acute (2) Homonymous hemianopsia Code(s): H53.469 - Homonymous bilateral field defects, unspecified side Status : Acute - Plan Ms. Dockery is a pleasant 43-year-old female with a history of mixed connective tissue disease who presents to the emergency department on 08/23/2018 due to blurry vision and darkness in her upper quadrant of her visual lawson that started on 08/22/2018. Patient denied any other focal neurological deficits. Bilateral hemianopsia Ophthalmology and neurology were contacted by emergency department physician. MRI brain neg per report MRA neck neg MRA head neg -Neurology following, appreciate assistance. MRI of the brain negative but plans to repeat with contrast MRI. Small white matter change right deep parietal region, otherwise normal per Dr. Boothe's reading. Baby ASA daily. Change sed rate and other rheumatological labs. Check EEG. MR venogram. -Follow-up with ophthalmology as outpatient Hypokalemia K 3.4 -po repletion ordered -repeat BMP in am Mixed connective tissue disease -We will continue hydroxychloroquine. Tobacco abuse -Patient smokes about 3 cigarettes/week. She has no desire to quit smoking. Provided counseling, however. Full code. SCDs, Ambulation. Code Status: FULL Discussed Condition With: patient, nursing staff, Dr. Sue, Dr. Boothe Discharge Planning: Not ready for discharge. (2) Homonymous hemianopsia Qualifiers: Laterality: left Qualified Code(s): H53.462 - Homonymous bilateral field defects, left side
--- NOTE | 2018-08-24 15:32 | ECHRPT ---
Indication: CEREBRAL EMBOLISM CONCLUSIONS . The left ventricular systolic function is low normal with an estimated ejection fraction in the ra nge of 50- 55%. Normal LV size and wall thickness. No significant valvular heart disease. No atrial level shunt is demonstrated by color flow Doppler interrogation. BP: / HR: Rhythm: Sinus MEASUREMENTS (Male / Female) Normal Values Technical Quality:Fair 2D ECHO LV Diastolic Diameter PLAX 4.1 cm 4.2 - 5.9 / 3.9 - 5.3 cm LV Systolic Diameter PLAX 3.3 cm IVS Diastolic Thickness 1.0 cm 0.6 - 1.0 / 0.6 - 0.9 cm LVPW Diastolic Thickness 1.1 cm 0.6 - 1.0 / 0.6 - 0.9 cm LV Relative Wall Thickness 0.5 RV Internal Dim ED PLAX 2.1 cm LVOT Diameter 1.9 cm Aortic Root Diameter 3.2 cm LA Systolic Diameter LX 2.5 cm 3.0 - 4.0 / 2.7 - 3.8 cm M-MODE AV Cusp Separation MM 1.8 cm DOPPLER AV Peak Velocity 160.0 cm/s AV Peak Gradient 10.2 mmHg AV Mean Gradient 5.0 mmHg AV Velocity Time Integral 27.3 cm MV Area PHT 1.2 cm Mitral E Point Velocity 87.9 cm/s Mitral A Point Velocity 83.9 cm/s Mitral E to A Ratio 1.0 LV E' Septal Velocity 5.9 cm/s Mitral E to LV E' Septal Ratio 14.8 TR Peak Velocity 238.5 cm/s TR Peak Gradient 22.8 mmHg PV Peak Velocity 50.4 cm/s PV Peak Gradient 1.0 mmHg FINDINGS LEFT VENTRICLE Normal left ventricular size. Wall thickness is measured at the upper limits of normal. The left ventricular systolic function is low normal with an estimated ejection fraction in the rang e of 50- 55%. RIGHT VENTRICLE Normal right ventricular size and systolic function. LEFT ATRIUM The left atrial size is normal. RIGHT ATRIUM The right atrial size is normal. ATRIAL SEPTUM No atrial level shunt is demonstrated by color flow Doppler interrogation. AORTA The aortic root and proximal ascending aorta are normal in size on limited imaging. MITRAL VALVE [id number] mitral valve regurgitation. AORTIC VALVE Trileaflet aortic valve. No aortic valve stenosis or regurgitation. TRICUSPID VALVE There is trace tricuspid valve regurgitation. PULMONARY VALVE No pulmonary valve regurgitation or stenosis. VESSELS The inferior vena cava is normal in size. PERICARDIUM No pericardial effusion. Brenda Bailey MD (Electronically Signed) Final Date:24 August 2018 15:31
--- NOTE | 2018-08-24 20:13 | MG ---
cc: Ned Boothe MD ELECTROENCEPHALOGRAM NUMBER: [id number] INDICATION: Vision change, possible right occipital lobe abnormality. MEDICATIONS: 1. Aspirin. 2. BuSpar. DESCRIPTION: A 9 Hz, 60 microvolt symmetric posterior rhythm is seen. I do not see any occipital lobe abnormalities. No epileptiform or seizure activity is noted. Some movement artifact is seen. She becomes drowsy. Photic stimulation was performed without significant posterior driving. Hyperventilation was performed without major change in the background. IMPRESSION: Normal awake electroencephalogram. No evidence for a focal or diffuse abnormality. Ned Boothe MD DJVirginia/jl , 07:19 PM , 07:22 PM
[2018-08-25 03:40] VITALS: O2SAT 99
[2018-08-25 05:55] LABS: Albumin 2.8 g/dL (3.4-5.0); Anion Gap 9 meq/L (5-15); Aspartate Aminotransferase 29 U/L (15-37); Blood Urea Nitrogen 12 mg/dL (7-18); Calcium 7.8 mg/dL (8.5-10.1); Carbon Dioxide 25.6 meq/L (21.0-32.0); Chloride 107 meq/L (98-107); Glomerular Filtration Rate 76 mL/min (>89); Glucose,Random 106 mg/dL (74-106); Magnesium 2.2 mg/dL (1.5-2.5); Potassium 3.6 meq/L (3.5-5.1); Sodium 142 meq/L (136-145)
[2018-08-25 05:57] LABS: Alanine Aminotransferase 16 U/L (10-53); Cholesterol 68 mg/dL (120-200); Phosphorus 2.7 mg/dL (2.5-4.9); Triglycerides 65 mg/dL (42-150)
[2018-08-25 06:00] LABS: Alkaline Phosphatase 85 U/L (45-117); Chol/HDL Ratio 1.45 Ratio; HDL Cholesterol 46.7 mg/dL (40.0-60.0); LDL Cholesterol,Calculated 8 mg/dL (0-99); Total Protein 6.4 g/dL (6.4-8.2)
[2018-08-25 06:02] LABS: Creatine Kinase 97 U/L (26-192)
[2018-08-25] MEDS: Sod Chloride 0.9% Inj 1,000 ML IV.CONT SCH (06:50)
--- NOTE | 2018-08-25 08:20 | P.PN ---
Subjective Interval history: Follow-up on patient with acute partial vision loss. Patient seen and examined. Patient continues to have sensation of wearing sunglasses and decreased vision in the upper outer quadrant of the left eye. She denies any headache, dizziness or lightheadedness. She denies any fever or chills. Denies any chest pain or shortness of breath. Physical Exam Vital signs: Vital Signs 08/24/18 12:00 08/24/18 15:52 08/24/18 19:55 Temperature 97.8 F 98.0 F 98.1 F Pulse Rate 83 83 87 Respiratory Rate 16 20 19 Blood Pressure 122/73 114/63 116/67 Pulse Oximetry 98 98 99 08/24/18 20:00 08/24/18 23:20 08/24/18 23:57 Temperature 98.1 F 98.1 F 98.1 F Pulse Rate 87 78 78 Respiratory Rate 19 19 19 Blood Pressure 116/67 123/69 123/69 Pulse Oximetry 99 97 97 08/25/18 03:36 08/25/18 04:00 Temperature 98.4 F 98.4 F Pulse Rate 73 73 Respiratory Rate 19 19 Blood Pressure 100/59 L 100/59 L Pulse Oximetry 99 99 Intake & Output 08/24/18 08/25/18 08/25/18 18:59 06:59 18:59 Intake Total 960 / 960 1140 / 1140 Balance 960 / 960 1140 / 1140 Weight 67.132 kg Intake: IV 1000 / 1000 NS Inj 1,000 ML @ 70 mls/hr IV. 1000 / 1000 CONT .[id number] [facility] Rx#:[id number] Oral 960 / 960 140 / 140 Other: # Voids 3 3 Date of Last Bowel Movement 08/22/18 # Bowel Movements 1 Narrative: GENERAL: This is a well-nourished, well-developed female patient, in no apparent distress. Awake and alert. Appears comfortable. SKIN: No rashes. Warm and dry. HEAD: Atraumatic. Normocephalic. No temporal or scalp tenderness. EYES: Pupils equal round and reactive. No injection or drainage. Peripheral vision is diminished in the upper outer quadrant left eye. ENT: Nose without bleeding or purulent drainage. Airway patent. NECK: Trachea midline. No lymphadenopathy. Supple, nontender, no meningeal signs. CARDIOVASCULAR: Regular rate and rhythm without murmurs, gallops, or rubs. No JVD. RESPIRATORY: Clear to auscultation. Breath sounds equal bilaterally. No wheezes , rales, or rhonchi. GASTROINTESTINAL: Abdomen soft, non-tender, nondistended. No guarding. MUSCULOSKELETAL: Extremities without clubbing, cyanosis, or edema. NEUROLOGICAL: Awake and alert. Cranial nerves II through XII intact. No focal neurological deficits other than visual field deficits as noted above. Motor appears grossly intact. Able to move all actually spontaneously. Normal speech. PSYCHIATRIC: Appropriate mood and affect. Normal judgment and insight. - Detailed Eye Exam Visual acuity: Visual Acuity Visual Acuity Corrected [ 20/20 Bilateral] Results - Labs CBC & Chem 7: 08/23/18 17:24 08/25/18 05:02 Laboratory Results - last 24 hr 08/24/18 08/24/18 08/24/18 09:55 09:55 10:50 ESR 31 H Sodium Potassium Chloride Carbon Dioxide Anion Gap BUN Creatinine Estimated GFR Random Glucose Calcium Phosphorus Magnesium Total Bilirubin Direct Bilirubin Indirect Bilirubin AST ALT Alkaline Phosphatase Total Creatine Kinase Troponin I C-Reactive Protein 4.58 H Total Protein Total Protein (PEP) 7.2 Albumin Triglycerides Cholesterol LDL Cholesterol, Calc HDL Cholesterol Cholesterol/HDL Ratio Vitamin B12 755 Folate Greater than 20.0 H TSH 3.010 Free T4 0.99 Beta HCG, Quant Less than 1 Urine Opiates Screen Neg Ur Barbiturates Screen Neg Ur Amphetamines Screen Neg U Benzodiazepines Scrn Neg Urine Cocaine Screen Neg U Cannabinoids Screen Neg Rheumatoid Factor Scrn Negative Rheumatoid Factor Titer Not Reportable 08/25/18 05:02 ESR Sodium 142 Potassium 3.6 Chloride 107 Carbon Dioxide 25.6 Anion Gap 9 BUN 12 Creatinine 0.82 Estimated GFR 76 L Random Glucose 106 Calcium 7.8 L Phosphorus 2.7 Magnesium 2.2 Total Bilirubin 0.2 Direct Bilirubin 0.1 Indirect Bilirubin 0.1 AST 29 ALT 16 Alkaline Phosphatase 85 Total Creatine Kinase 97 Troponin I Less than 0.02 L C-Reactive Protein Total Protein 6.4 D Total Protein (PEP) Albumin 2.8 L Triglycerides 65 Cholesterol 68 L LDL Cholesterol, Calc 8 HDL Cholesterol 46.7 Cholesterol/HDL Ratio 1.45 Vitamin B12 Folate TSH Free T4 Beta HCG, Quant Urine Opiates Screen Ur Barbiturates Screen Ur Amphetamines Screen U Benzodiazepines Scrn Urine Cocaine Screen U Cannabinoids Screen Rheumatoid Factor Scrn Rheumatoid Factor Titer - Imaging Impressions Head/Brain Mag Res Venography 08/24/18 00:00 CONCLUSION: 1. Normal evaluation of the intracranial venous structures. 2. The left internal jugular vein is not visualized which could be related to technical factors. However, consider obtaining internal jugular vein ultrasound evaluation to evaluate for patency. Head MRI 08/24/18 09:13 CONCLUSION: Normal brain MRI with and without intravenous contrast. There is no abnormality identified to explain the clinical symptoms. Assessment and Plan - Assessment (1) MCTD (mixed connective tissue disease) Code(s): M35.1 - Other overlap syndromes Status: Acute (2) Homonymous hemianopsia Code(s): H53.469 - Homonymous bilateral field defects, unspecified side Status : Acute - Plan Ms. Dockery is a pleasant 43-year-old female with a history of mixed connective tissue disease who presents to the emergency department on 08/23/2018 due to blurry vision and darkness in her upper quadrant of her visual lawson that started on 08/22/2018. Patient denied any other focal neurological deficits. Left superior quadrantanopia Possible complicated migraine with prolonged aura Ophthalmology and neurology were contacted by emergency department physician. MRI brain neg per report, repeat MRI neg MRA neck neg MRA head neg EEG unremarkable MR venogram neg Echo EF 50-55% -Neurology following, appreciate assistance. Workup unremarkable except for one area of white matter change right parietal, not c/w MD. Continue on baby aspirin daily. Hypercoagulable workup pending. Cleared for discharge from neurologic standpoint. Follow-up in office as outpatient. -Ophthalmology following, appreciate assistance. Cleared for discharge follow-up as outpatient within the next week. Hypokalemia K 3.4 -Resolved status post repletion Mixed connective tissue disease -We will continue hydroxychloroquine. Tobacco abuse -Patient smokes about 3 cigarettes/week. She has no desire to quit smoking. Provided counseling, however. Full code. SCDs, Ambulation. Discharge patient to home Condition on discharge: Stable Heart healthy Diet as tolerated [employer] activity Rx written: ASA 81mg daily Follow-up with primary care physician, neurologist and wood car builder Code Status: FULL Discussed Condition With: patient, nursing staff, Dr. Carson (2) Homonymous hemianopsia Qualifiers: Laterality: left Qualified Code(s): H53.462 - Homonymous bilateral field defects, left side
[2018-08-25 08:47] VITALS: PULSE 84
[2018-08-25 08:48] VITALS: BP 118/64; RESP 16; TEMP 98
[2018-08-25] MEDS: Hydroxychloroquine 200 MG Tablet PO SCH (09:36)
[2018-08-25] MEDS: Gabapentin 300 MG Capsule PO SCH (09:36)
[2018-08-25] MEDS: Calcium Carbonate 500 MG Tablet PO SCH (09:36)
--- NOTE | 2018-08-25 09:42 | P.PNNEU ---
Subjective Subjective Comments: sr Active Medications: Active Medications Acetaminophen (Tylenol) 650 mg PO Q4H PRN PRN Reason: Headache, fever, pain 1-4 Al Hydroxide/Mg Hydroxide (Milk Of Magnesia Liq) 30 ml PO Q12H PRN PRN Reason: Mild Constipation Aspirin (Ecotrin) 81 mg PO DAILY [facility] Last Admin: 08/25/18 09:36 Dose: 81 mg Bisacodyl (Dulcolax Supp) 10 mg RECTAL DAILY PRN PRN Reason: SEVERE CONSITIPATION Buspirone HCl (Buspar) 10 mg PO BID [facility] Last Admin: 08/25/18 09:36 Dose: 10 mg Calcium Carbonate (Oscal) 500 mg PO TID [facility] Last Admin: 08/25/18 09:36 Dose: 500 mg Gabapentin (Neurontin) 300 mg PO TID [facility] Last Admin: 08/25/18 09:36 Dose: 300 mg Hydroxychloroquine Sulfate (Plaquenil) 200 mg PO BID [facility] Last Admin: 08/25/18 09:36 Dose: 200 mg Sodium Chloride (Ns Inj) 1,000 mls @ 70 mls/hr IV.CONT .[id number] [facility] Last Admin: 08/25/18 06:50 Dose: 70 mls/hr Lactulose (Lactulose Liq) 30 ml PO DAILY PRN PRN Reason: SEVERE CONSITIPATION Ondansetron HCl (Zofran Inj) 4 mg IV.PUSH Q6H PRN PRN Reason: NAUSEA OR VOMITING Sennosides (Senokot) 17.2 mg PO Q12H PRN PRN Reason: Moderate Constipation Allergies/Adverse Reactions: Allergies Allergy/AdvReac Type Severity Reaction Status Date / Time sulfamethoxazole Allergy Rash Verified 08/23/18 16:49 [From Bactrim] trimethoprim [From Bactrim] Allergy Rash Verified 08/23/18 16:49 Physical Exam Vital signs: Vital Signs 08/24/18 12:00 08/24/18 15:52 08/24/18 19:55 Temperature 97.8 F 98.0 F 98.1 F Pulse Rate 83 83 87 Respiratory Rate 16 20 19 Blood Pressure 122/73 114/63 116/67 Pulse Oximetry 98 98 99 08/24/18 20:00 08/24/18 23:20 08/24/18 23:57 Temperature 98.1 F 98.1 F 98.1 F Pulse Rate 87 78 78 Respiratory Rate 19 19 19 Blood Pressure 116/67 123/69 123/69 Pulse Oximetry 99 97 97 08/25/18 03:36 08/25/18 04:00 08/25/18 08:00 Temperature 98.4 F 98.4 F 98.0 F Pulse Rate 73 73 79 Respiratory Rate 19 19 16 Blood Pressure 100/59 L 100/59 L 118/64 Pulse Oximetry 99 99 99 08/25/18 08:46 Temperature Pulse Rate 84 Respiratory Rate Blood Pressure Pulse Oximetry Intake & Output 08/24/18 08/25/18 08/25/18 18:59 06:59 18:59 Intake Total 960 / 960 1140 / 1140 Balance 960 / 960 1140 / 1140 Weight 67.132 kg Intake: IV 1000 / 1000 NS Inj 1,000 ML @ 70 mls/hr IV. 1000 / 1000 CONT .[id number] [facility] Rx#:[id number] Oral 960 / 960 140 / 140 Other: # Voids 3 3 Date of Last Bowel Movement 08/22/18 # Bowel Movements 1 Narrative: looks nl nad temples nontender still left superior quadrantonopia moves all well - Detailed Eye Exam Visual acuity: Visual Acuity Visual Acuity Corrected [ 20/20 Bilateral] Objective Laboratory Results - last 24 hr 08/24/18 08/24/18 08/24/18 09:55 09:55 10:50 ESR 31 H Sodium Potassium Chloride Carbon Dioxide Anion Gap BUN Creatinine Estimated GFR Random Glucose Calcium Phosphorus Magnesium Total Bilirubin Direct Bilirubin Indirect Bilirubin AST ALT Alkaline Phosphatase Total Creatine Kinase Troponin I C-Reactive Protein 4.58 H Total Protein Total Protein (PEP) 7.2 Albumin Triglycerides Cholesterol LDL Cholesterol, Calc HDL Cholesterol Cholesterol/HDL Ratio Vitamin B12 755 Folate Greater than 20.0 H TSH 3.010 Free T4 0.99 Beta HCG, Quant Less than 1 Urine Opiates Screen Neg Ur Barbiturates Screen Neg Ur Amphetamines Screen Neg U Benzodiazepines Scrn Neg Urine Cocaine Screen Neg U Cannabinoids Screen Neg Rheumatoid Factor Scrn Negative Rheumatoid Factor Titer Not Reportable 08/25/18 05:02 ESR Sodium 142 Potassium 3.6 Chloride 107 Carbon Dioxide 25.6 Anion Gap 9 BUN 12 Creatinine 0.82 Estimated GFR 76 L Random Glucose 106 Calcium 7.8 L Phosphorus 2.7 Magnesium 2.2 Total Bilirubin 0.2 Direct Bilirubin 0.1 Indirect Bilirubin 0.1 AST 29 ALT 16 Alkaline Phosphatase 85 Total Creatine Kinase 97 Troponin I Less than 0.02 L C-Reactive Protein Total Protein 6.4 D Total Protein (PEP) Albumin 2.8 L Triglycerides 65 Cholesterol 68 L LDL Cholesterol, Calc 8 HDL Cholesterol 46.7 Cholesterol/HDL Ratio 1.45 Vitamin B12 Folate TSH Free T4 Beta HCG, Quant Urine Opiates Screen Ur Barbiturates Screen Ur Amphetamines Screen U Benzodiazepines Scrn Urine Cocaine Screen U Cannabinoids Screen Rheumatoid Factor Scrn Rheumatoid Factor Titer Review/Management - Review/Management Plan: imp echo nl mrix2 nl area around optic nerve pit and medial temporal lobe and occipital lobe nl mrax2 and mrv nl ldl nl crp inc eeg nl on asa ? complicated acephalgic migraine with prolonged aura? have optho see hypercoag pend if optho clears could dc if holter done on asa and fu office
--- NOTE | 2018-08-25 15:36 | P.CON ---
History of Present Illness Service: Ophthalmology Reason for Consult: homonymous quadrantanopsia Primary Care Provider: UNKNOWN Chief Complaint: Partial vision loss History of Present Illness: 43 yo F female with a history of daily headaches and mixed connective tissue disease (MCTD) who presents to the ED on 08/23/2018 due to acute vision loss and blurry vision that started on 08/22/2018. She states she woke up in the morning and experienced blurriness in her vision as well as darkness especially on the upper left quadrants of both eyes. [facility] who found a normal dilated exam and recommended evaluation for possible stroke. MRI brain x 2 normal, MRA normal. No significant ocular history. PMFSH - History History Provided By: Patient - Medical History Medical History: Medical History (Last Updated 08/23/18 @ 16:54 by Diamond Alfonso) Age related osteoporosis Arthritis delivery delivered Degenerative joint disease Fibromyalgia Kidney disease Lupus Migraine - Tobacco History Second Hand Smoke Exposure: No Tobacco Use In Past 30 Days: Yes Smoking Status: Light tobacco smoker Tobacco Type: Cigarettes - Alcohol History How Often Do You Have a Drink Containing Alcohol: Never - Substance Use History Substance History: No History of Abuse - Travel History Recent Travel in the [place] Within the Last 8 Weeks: No Recent Travel Out of the Country Within the Last 8 Weeks: No - Immunization History Tetanus Immunization: Unsure Hx Influenza Vaccine This Season: No Medications and Allergies Active Medications: Active Medications Acetaminophen (Tylenol) 650 mg PO Q4H PRN PRN Reason: Headache, fever, pain 1-4 Al Hydroxide/Mg Hydroxide (Milk Of Magnlillie Liq) 30 ml PO Q12H PRN PRN Reason: Mild Constipation Aspirin (Ecotrin) 81 mg PO DAILY [facility] Last Admin: 08/25/18 09:36 Dose: 81 mg Bisacodyl (Dulcolax Supp) 10 mg RECTAL DAILY PRN PRN Reason: SEVERE CONSITIPATION Buspirone HCl (Buspar) 10 mg PO BID [facility] Last Admin: 08/25/18 09:36 Dose: 10 mg Calcium Carbonate (Oscal) 500 mg PO TID [facility] Last Admin: 08/25/18 09:36 Dose: 500 mg Gabapentin (Neurontin) 300 mg PO TID [facility] Last Admin: 08/25/18 09:36 Dose: 300 mg Hydroxychloroquine Sulfate (Plaquenil) 200 mg PO BID [facility] Last Admin: 08/25/18 09:36 Dose: 200 mg Sodium Chloride (Ns Inj) 1,000 mls @ 70 mls/hr IV.CONT .[id number] [facility] Last Admin: 08/25/18 06:50 Dose: 70 mls/hr Lactulose (Lactulose Liq) 30 ml PO DAILY PRN PRN Reason: SEVERE CONSITIPATION Ondansetron HCl (Zofran Inj) 4 mg IV.PUSH Q6H PRN PRN Reason: NAUSEA OR VOMITING Sennosides (Senokot) 17.2 mg PO Q12H PRN PRN Reason: Moderate Constipation Allergies Allergy/AdvReac Type Severity Reaction Status Date / Time sulfamethoxazole Allergy Rash Verified 08/23/18 16:49 [From Bactrim] trimethoprim [From Bactrim] Allergy Rash Verified 08/23/18 16:49 Home Medications Medication Instructions Recorded Confirmed Type biotin 5 mg/ml PO DAILY 08/23/18 08/25/18 History buspirone 10 mg PO BID 08/23/18 08/23/18 History calcium carbonate [Calcium 600] 600 mg PO TID 08/23/18 08/23/18 History cyclobenzaprine 10 mg PO DAILY 08/23/18 08/23/18 History diphenhydramine HCl [Benadryl] 25 mg HS PRN 08/23/18 08/24/18 History gabapentin 300 mg PO TID 08/23/18 08/23/18 History hydroxychloroquine 200 mg PO BID 08/23/18 08/23/18 History meloxicam 15 mg PO DAILY 08/23/18 08/23/18 History venlafaxine 225 mg PO DAILY 08/24/18 08/24/18 History Physical Exam Vital signs: Vital Signs 08/24/18 15:52 08/24/18 19:55 08/24/18 20:00 Temperature 98.0 F 98.1 F 98.1 F Pulse Rate 83 87 87 Respiratory Rate 20 19 19 Blood Pressure 114/63 116/67 116/67 Pulse Oximetry 98 99 99 08/24/18 23:20 08/24/18 23:57 08/25/18 03:36 Temperature 98.1 F 98.1 F 98.4 F Pulse Rate 78 78 73 Respiratory Rate 19 19 19 Blood Pressure 123/69 123/69 100/59 L Pulse Oximetry 97 97 99 08/25/18 04:00 08/25/18 08:00 08/25/18 08:46 Temperature 98.4 F 98.0 F Pulse Rate 73 79 84 Respiratory Rate 19 16 Blood Pressure 100/59 L 118/64 Pulse Oximetry 99 99 Intake & Output 08/24/18 08/25/18 08/25/18 18:59 06:59 18:59 Intake Total 960 / 960 1140 / 1140 Balance 960 / 960 1140 / 1140 Weight 67.132 kg Intake: IV 1000 / 1000 NS Inj 1,000 ML @ 70 mls/hr IV. 1000 / 1000 CONT .[id number] [facility] Rx#:[id number] Oral 960 / 960 140 / 140 Other: # Voids 3 3 Date of Last Bowel Movement 08/22/18 08/25/18 # Bowel Movements 1 - Detailed Eye Exam Visual acuity: Visual Acuity Visual Acuity Corrected [ 20/20 Bilateral] Comments: [facility] at near OD 20/40, OS 20/40 EOM full OU, no diplopia CVF left superior quadrantanopsia OU Pupils 2-1 no APD OU IOP normal to palpation OU Anterior exam OD - normal eyelid, C/S W&Q, K clear, AC deep, pupil round, lens clear OS - normal eyelid, C/S W&Q, K clear, AC deep, pupil round, lens clear Assessment and Plan - Assessment (1) Quadrantanopsia Code(s): H53.469 - Homonymous bilateral field defects, unspecified side Status : Acute Plan: Normal MRI/MRA. Follow up as outpatient for repeat dilated exam, visual field test.
[2018-08-26 13:52] LABS: Dil Russell Viper Venom Conf ( ND (NEGATIVE); Dil Russell Viper Venom Time M ND (CORRECTED); Lupus Anticoagulant PTT Screen 43 seconds (< OR = 40)
[2018-08-26 23:54] LABS: Homocysteine (Cardiovascular) 9.4 umol/L (<10.4)
--- NOTE | 2018-08-27 15:29 | HM ---
Date Performed: 08/24/2018 Time Performed: 18:34:00 HOOKUP DATE: 08/24/18 06:34:00 PM Fri ANALYSIS START TIME: 08/24/2018 6:39:00 PM ANALYSIS END TIME: 08/25/2018 12:07:23 PM PATIENT AGE: 43 PATIENT HEIGHT PATIENT WEIGHT DRUG LIST PATIENT DIAGNOSIS: ACUTE STROKE OR TIA TEST NARRATIVE: The patient's average heart rate was 82 BPM. Heart rates greater than 120 B PM were noted < 1% of the time. No episodes of bradycardia were noted. No pauses exceeding 2.0 s econds were noted. No ventricular ectopics were noted. No supraventricular ectopics were note d. No episodes of ST depression (defined as -1.0 mm or more) were noted in channel 1. No episode s of ST depression (defined as -1.0 mm or more) were noted in channel 2. No episodes of ST depressio n (defined as -1.0 mm or more) were noted in channel 3. PATIENT DIARY WAS NOT RETURNED WITH HOLTER MO NITOR. TEST INTERPRETATION: Minimum heart rate 55bpm, Maximum heart rate 128bpm and average heart rate of 82bpm. Underlying rhythm is normal sinus. No atrial fibrillation noted Negative 24hour holter. Signed by : Gladys Payne
[2018-08-27 16:06] LABS: Anti-Nuclear Antibody Screen Pos (Neg)
[2018-08-28 03:51] LABS: Activated Protein C Resistance 4.7 ratio (> OR = 2.1)
[2018-08-28 10:20] LABS: Factor V Leiden Mutation Negative (Negative); Protein C Antigen 79 % (70-150)
[2018-08-29 09:15] LABS: Methylmalonic Acid 0.15 nmol/mL (<=0.40)
[2018-08-29 17:58] LABS: Anti-Nuclear Antibody Pattern Speckled
== END 2018-08-25 13:17 | disposition home or self-care (01) ==
LOC: NEPC 16:21 → NEDA 16:21 → NEPHCDU 19:59
PROVIDERS: ADMIT Hospitalist; ATTEND Hospitalist